=== PATIENT | female | born 1960 | race Caucasian/White ===

== ENCOUNTER → 2019-01-02 | Outpatient (CLI) | payer BC ==
--- NOTE | 2019-01-02 16:21 | RAD ---
Right lower extremity venous ultrasound, 01/02/2019 : History: Right knee pain and swelling Duplex evaluation including grayscale, color flow and spectral Doppler analysis was performed. The femoral and popliteal veins show no filling defects to suggest DVT. The visualized deep veins in the right calf are unremarkable. IMPRESSION: There is no sonographic evidence of deep vein thrombosis in the right lower extremity Electronically signed by: Ed Hernandez MD (01/02/2019 4:18 PM) [facility]
--- NOTE | 2019-01-02 16:36 | RAD ---
Left upper extremity arterial ultrasound, 01/02/2019: HISTORY: Hand pain and swelling Duplex evaluation of the major arteries in the left upper extremity was performed including grayscale, color-flow and spectral Doppler analysis. The left subclavian artery is widely patent and demonstrates a triphasic Doppler waveform. The left axillary and brachial arteries are patent demonstrating biphasic Doppler waveforms. The radial and ulnar arteries are evident in the forearm demonstrating similar good amplitude biphasic Doppler waveforms. IMPRESSION: No duplex evidence of significant arterial occlusive disease in the left upper extremity. Electronically signed by: Ed Hernandez MD (01/02/2019 4:33 PM) [facility]
== END | disposition home or self-care (01) ==
LOC: US 13:39
PROVIDERS: ATTEND Family Medicine
DX: M79.661 Pain in right lower leg (principal); M79.642 Pain in left hand; L81.9 Disorder of pigmentation, unspecified
CPT/HCPCS: 93931; 93971